=== PATIENT | male | born 1990 | race African-American/Black ===

== ENCOUNTER 2019-01-04 23:50 | Emergency (ER) | payer OTHER ==
[~2019-01-04] VITALS: Ht 167.6 cm; Wt 117.9 kg
[2019-01-05 00:01] VITALS: BP 150/79
[2019-01-05] MEDS ORDERED: NAPROSYN500 MG PO (01:00)
== END 2019-01-05 01:13 | disposition home or self-care (01) ==
LOC: ER 23:50
DX: S60.222A Contusion of left hand, initial encounter (principal); W18.00XA Striking against unspecified object with subsequent fall, initial encounter; Y93.89 Activity, other specified; Y92.89 Other specified places as the place of occurrence of the external cause; Y99.8 Other external cause status